=== PATIENT | female | born 1995 | race Caucasian/White ===

== ENCOUNTER 2022-09-12 00:09 | Emergency (ER) | payer OTHER ==
[~2022-09-12] VITALS: Ht 170.2 cm; Wt 118.6 kg
[~2022-09-12 00:09] MED LIST: PHENERGAN 25 TA25 MG PO
[2022-09-12 03:30] VITALS: BP 138/70; PULSE 62
== END 2022-09-12 03:30 | disposition home or self-care (01) ==
LOC: COL.ER 00:09
DX: O21.2 Late vomiting of pregnancy (principal); Z3A.34 34 weeks gestation of pregnancy; Z28.310 Unvaccinated for COVID-19
CPT/HCPCS: J1200; J2550; J2765; J7030